=== PATIENT | male | born 1995 | race Caucasian/White ===

== ENCOUNTER 2018-06-29 10:19 | Emergency (ER) | payer OTHER ==
[2018-06-29 10:28] VITALS: RESP 18; TEMP 98
--- NOTE | 2018-06-29 11:48 | CT ---
EXAMINATION TYPE: CT brain wo con DATE OF EXAM: 06/29/2018 COMPARISON: None HISTORY: Migraine Headache, dizziness, and blurred vision. CT DLP: 1108.4 mGycm. Automated Exposure Control for Dose Reduction was Utilized. TECHNIQUE: CT scan of the head is performed without contrast. FINDINGS: There is no acute intracranial hemorrhage, mass effect, or midline shift identified. The ventricles and sulci are within normal limits in size. Ritter-white matter differentiation is maintain ed. The globes are intact and the visualized sinuses are clear. Patchy opacification mastoid air cell s is present bilaterally. IMPRESSION: Possible mastoiditis versus retained secretions, correlate clinically.
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
[2018-06-29 12:31] VITALS: BP 137/74; PULSE 64
== END 2018-06-29 12:28 | disposition home or self-care (01) ==
LOC: EC 10:19
DX: R51 Headache (principal); H70.90 Unspecified mastoiditis, unspecified ear; Z79.1 Long term (current) use of non-steroidal anti-inflammatories (NSAID)
CPT/HCPCS: 70450; 99284

== ENCOUNTER 2018-11-21 11:03 | Emergency (ER) | payer OTHER ==
[2018-11-21 11:09] VITALS: PULSE 87
--- NOTE | 2018-11-21 11:35 | ED ---
Lower Extremity Injury HPI - General Chief Complaint: Extremity Injury, Lower Stated Complaint: rt ankle injury Time Seen by Provider: 11/21/18 11:12 Source: patient, RN notes reviewed, old records reviewed Mode of arrival: wheelchair Limitations: no limitations - History of Present Illness Initial Comments: Patient is a 22-year-old male presents emergency Department with right ankle pain. Patient reports that he twisted his ankle while going down the steps 2 days ago. Since that time he's been a building with crutches. Patient reports the swelling has not gone down for the past few days. Patient states that he's had no other complaints at this time. - Related Data Previous Rx's Medication Instructions Recorded Ibuprofen [Motrin] 600 mg PO Q8HR PRN #30 tab 06/29/18 Ibuprofen 600 mg PO TID #20 tablet 11/21/18 Allergies Allergy/AdvReac Type Severity Reaction Status Date / Time No Known Allergies Allergy Verified 11/21/18 11:27 Review of Systems ROS Statement: Those systems with pertinent positive or pertinent negative responses have been documented in the HPI. ROS Other: All systems not noted in ROS Statement are negative. Past Medical History Past Medical History: No Reported History History of Any Multi-Drug Resistant Organisms: None Reported Past Surgical History: Appendectomy, Tonsillectomy Past Psychological History: No Psychological Hx Reported Smoking Status: Never smoker Past Alcohol Use History: None Reported Past Drug Use History: None Reported General Exam - General Exam Comments Initial Comments: 22-year-old male. Alert and oriented. Patient appears in no distress. Limitations: no limitations General appearance: alert, in no apparent distress Head exam: Present: atraumatic, normocephalic, normal inspection Eye exam: Present: normal appearance, PERRL, EOMI. Absent: scleral icterus, conjunctival injection, periorbital swelling ENT exam: Present: normal exam, mucous membranes moist Neck exam: Present: normal inspection. Absent: tenderness, meningismus, lymphadenopathy Respiratory exam: Present: normal lung sounds bilaterally. Absent: respiratory distress, wheezes, rales, rhonchi, stridor Cardiovascular Exam: Present: regular rate, normal rhythm, normal heart sounds. Absent: systolic murmur, diastolic murmur, rubs, gallop, clicks GI/Abdominal exam: Present: soft, normal bowel sounds. Absent: distended, tenderness, guarding, rebound, rigid Extremities exam: Present: normal inspection, full ROM, normal capillary refill. Absent: tenderness, pedal edema, joint swelling, calf tenderness Right Lower Leg exam: Present: normal inspection, full ROM Ankle exam: Present: full ROM, tenderness, swelling (Just tenderness and swelling over bilateral medial and lateral malleolus.). Absent: normal inspection Foot/Toe exam: Present: normal inspection, full ROM Back exam: Present: normal inspection Neurological exam: Present: alert, oriented X3, CN II-XII intact Psychiatric exam: Present: normal affect, normal mood Skin exam: Present: warm, dry, intact, normal color. Absent: rash Course Vital Signs 11/21/18 11:05 Temperature 98.1 F Pulse Rate 87 Respiratory 18 Rate Blood Pressure 129/81 O2 Sat by Pulse 97 Oximetry Procedures - Orthopedic Splinting/Casting Injury #1 Side: right Lower Extremity Injury Location: ankle Lower Extremity Immobilizer: AirCast, Ben wrap Medical Decision Making - Medical Decision Making 22-year-old male presents emergency department today with complaints of right ankle pain and swelling for 2 days. Patient states he is inhibited his crutches. He twisted his ankle. Neurovascularly intact. There is some swelling noted over the lateral medial malleolus. At this time Patient has normal x-rays. No evidence of fracture. Patient was placed in Ben wrap and ankle stirrup splint. I discussed the Patient can follow-up with orthopedic. Discussed the reports of alternating Motrin and Tylenol. A questions answered. - Radiology Data Radiology results: report reviewed X-ray of the right foot shows no fracture or dislocation. Ankle x-rays negative for any acute fracture dislocation. Soft tissue swelling over the lateral malleolus region noted. Disposition Clinical Impression: Right ankle sprain Disposition: HOME SELF-CARE Condition: Good Instructions (If sedation given, give patient instructions): Ankle Sprain (ED) Additional Instructions: Patient is to follow-up with acute care clinical nurse specialist. Return to the emergency department if any alarming signs or symptoms occur. Patient should wear the Ben wrap and ankle stirrup splint. Prescriptions: Ibuprofen 600 mg PO TID #20 tablet Is patient prescribed a controlled substance at d/c from ED?: No Referrals: None,Stated [Primary Care Provider] - 1-2 days Shahid Shukla MD [STAFF PHYSICIAN] - 1-2 days Time of Disposition: 12:01
--- NOTE | 2018-11-21 11:56 | XR ---
EXAMINATION TYPE: XR ankle complete RT DATE OF EXAM: 11/21/2018 COMPARISON: NONE HISTORY: Pain TECHNIQUE: Frontal, lateral and oblique images of the right ankle are obtained. COMPARISON: None. FINDINGS: There is no acute fracture/dislocation evident. The joint spaces appear within normal jack its. Involuted fibrous cortical defect distal tibia. Soft tissue swelling lateral malleolar region. IMPRESSION: There is no acute fracture or dislocation seen.
--- NOTE | 2018-11-21 11:57 | XR ---
EXAMINATION TYPE: XR foot complete RT DATE OF EXAM: 11/21/2018 CLINICAL HISTORY: pain TECHNIQUE: Frontal, lateral and oblique images of the right foot are obtained. COMPARISON: None. FINDINGS: There is no acute fracture/dislocation evident. The joint spaces appear within normal jack its. The overlying soft tissue appears unremarkable. IMPRESSION: There is no acute fracture or dislocation. ICD 10 NO FRACTURE, INITIAL EVALUATION
[2018-11-21 12:27] VITALS: BP 118/87; RESP 16; TEMP 98
== END 2018-11-21 12:25 | disposition home or self-care (01) ==
LOC: EC 11:03
DX: S93.401A Sprain of unspecified ligament of right ankle, initial encounter (principal); X50.1XXA Overexertion from prolonged static or awkward postures, initial encounter
CPT/HCPCS: 29515; 99284

== ENCOUNTER 2018-12-03 01:40 | Emergency (ER) | payer OTHER ==
[2018-12-03] MEDS ORDERED: HYDROmorphone 0.5 MG/0.5 ML SYRINGE IVP STA (02:21)
[2018-12-03] MEDS ORDERED: KETOROLAC 30 MG/ML 1 ML VIAL IVP STA (02:21)
[2018-12-03] MEDS ORDERED: SODIUM CHLORIDE 0.9% 1,000 ML IV STA (02:21)
[2018-12-03] MEDS ORDERED: ONDANSETRON 4 MG/2 ML VIAL IVP STA (02:21)
[2018-12-03 02:42] LABS: Basophils # (A) 0.1 k/uL (0-0.2); Basophils % (A) 1 %; Eosinophils # (A) 0.2 k/uL (0-0.7); Eosinophils % (A) 2 %; HCT 41.3 % (39.0-53.0); HGB 14.2 gm/dL (13.0-17.5); Lymphocytes # (A) 4.4 k/uL (1.0-4.8); Lymphocytes % (A) 37 %; MCH 29.5 pg (25.0-35.0); MCHC 34.4 g/dL (31.0-37.0); MCV 85.7 fL (80.0-100.0); Mean Platelet Volume 6.2; Monocytes # (A) 0.8 k/uL (0-1.0); Monocytes % (A) 7 %; Neutrophils # (A) 6.1 k/uL (1.3-7.7); Neutrophils % (A) 51 %; Platelet Count 340 k/uL (150-450); RBC 4.81 m/uL (4.30-5.90); RDW 12.7 % (11.5-15.5)
[2018-12-03 02:47] LABS: Amorphous Sediment,Urine Rare /hpf; Appearance,Urine Cloudy (Clear); Bilirubin,Urine Negative (Negative); Blood,Urine Large (Negative); Color,Urine Yellow; Glucose,Urine (UA) Negative (Negative); Ketones,Urine Negative (Negative); Leukocyte Esterase,Urine Negative (Negative); Mucus,Urine Rare /hpf; Nitrite,Urine Negative (Negative); PH, Urine 6.5 (5.0-8.0); Protein,Urine Trace (Negative); RBC,Urine >182 /hpf (0-5); Squamous Epithelial Cell,Urine <1 /hpf (0-4); Urobilinogen,Urine <2.0 mg/dL (<2.0)
--- NOTE | 2018-12-03 02:53 | CT ---
ADDENDUM - Added by Bandar Robb MD on 12/03/2018 2:53 AM (-08:00) ctdi 6 dlp [id number] EXAM: CT Abdomen and Pelvis Without Intravenous Contrast CLINICAL HISTORY: ITS.REASON CT Reason: Pain TECHNIQUE: Axial computed tomography images of the abdomen and pelvis without intravenous contrast. This CT exam was performed using one or more of the following dose reduction techniques: automated exposure control, adjustment of the mA and/or kV according to patient size, and/or use of iterative reconstruction technique. COMPARISON: No relevant prior studies available. FINDINGS: Lung bases: Unremarkable. No mass. No consolidation. ABDOMEN: Liver: No suspicious mass. Gallbladder and bile ducts: No abnormal ductal dilation or stones. Pancreas: Unremarkable. No ductal dilation. Spleen: Unremarkable. No splenomegaly. Adrenals: Unremarkable. No mass. Kidneys and ureters: Bilateral nephrolithiasis. 1 mm stone in the bladder adjacent to the left UVJ with mild hydronephrosis. Stomach and bowel: No obstruction. No mucosal thickening. PELVIS: Appendix: No findings to suggest acute appendicitis. Bladder: Unremarkable. No stones. Reproductive: Unremarkable as visualized. ABDOMEN and PELVIS: Intraperitoneal space: Unremarkable. No free air. No significant fluid collection. Bones/joints: No acute fracture. No dislocation. Soft tissues: Unremarkable. Vasculature: No abdominal aortic aneurysm. Lymph nodes: Unremarkable. No enlarged lymph nodes. IMPRESSION: Bilateral nephrolithiasis. 1 mm stone in the bladder adjacent to the left UVJ with mild hydronephrosis.
[2018-12-03 02:54] LABS: ALT 27 U/L (21-72); AST 27 U/L (17-59); Albumin 4.7 g/dL (3.5-5.0); Alkaline Phosphatase 60 U/L (38-126); Amylase 65 U/L (30-110); Anion Gap 11 mmol/L; Blood Urea Nitrogen 13 mg/dL (9-20); Calcium 9.9 mg/dL (8.4-10.2); Carbon Dioxide 25 mmol/L (22-30); Chloride 104 mmol/L (98-107); Glucose 142 mg/dL (74-99); Lipase 152 U/L (23-300); Potassium 3.5 mmol/L (3.5-5.1); Sodium 140 mmol/L (137-145); Total Bilirubin 0.7 mg/dL (0.2-1.3)
[2018-12-03] MEDS ORDERED: IBUPROFEN 600 MG STARTER PACK 4 TAB BTL PO STA (03:08)
[2018-12-03] MEDS ORDERED: TAMSULOSIN 0.4 MG CAP.ER.24H PO STA (03:08)
[2018-12-03] MEDS ORDERED: ACET/COD 300 MG/30 MG STARTER PACK 6 TAB BTL PO STA (03:08)
--- NOTE | 2018-12-03 03:09 | ED ---
Abdominal Pain HPI - General Source: patient Mode of arrival: ambulatory Limitations: no limitations <Krystal Valencia - Last Filed: 12/03/18 03:25> <Sammie Fischer - Last Filed: 12/03/18 04:45> - General Chief Complaint: Abdominal Pain Stated Complaint: Male Time Seen by Provider: 12/03/18 02:03 - History of Present Illness Initial Comments: 22-year-old male patient presents to the emergency department today for evaluation of left flank pain that radiates and left-sided abdomen. Patient states the pain started 2 hours prior to arrival. Patient states he has been having hematuria with this. States he is nauseated but has not vomited. States he has not had a bowel movement today. States he has had appendectomy in the past but no other abdominal surgeries. Denies history of kidney stone. States he has felt chilled and feverish but has not taken his temperature. Patient denies any recent rash, shortness breath, chest pain, diarrhea, numbness , tingling, dizziness, weakness, dysuria, urinary urgency, urinary frequency, headache, visual changes, or any other complaints. (Krystal Valencia) - Related Data Previous Rx's Medication Instructions Recorded Ibuprofen [Motrin] 600 mg PO Q8HR PRN #30 tab 06/29/18 Ibuprofen 600 mg PO TID #20 tablet 11/21/18 Ibuprofen [Motrin] 600 mg PO Q8HR PRN #30 tab 12/03/18 Tamsulosin HCl [Flomax] 0.4 mg PO DAILY #7 cap 12/03/18 Allergies Allergy/AdvReac Type Severity Reaction Status Date / Time No Known Allergies Allergy Verified 12/03/18 02:00 Review of Systems ROS Other: All systems not noted in ROS Statement are negative. <Krystal Valencia - Last Filed: 12/03/18 03:25> ROS Other: All systems not noted in ROS Statement are negative. <Sammie Fischer - Last Filed: 12/03/18 04:45> ROS Statement: Those systems with pertinent positive or pertinent negative responses have been documented in the HPI. Past Medical History Past Medical History: No Reported History History of Any Multi-Drug Resistant Organisms: None Reported Past Surgical History: Appendectomy, Tonsillectomy Past Psychological History: No Psychological Hx Reported Smoking Status: Never smoker Past Alcohol Use History: None Reported Past Drug Use History: Marijuana <Krystal Valencia M - Last Filed: 12/03/18 03:25> General Exam Limitations: no limitations General appearance: alert, in no apparent distress, other (Physical well- developed, well-nourished adult male patient in no acute distress. Vital signs upon presentation are temperature 98.2F, pulse 94, respirations 18, blood pressure 133/81, pulse ox 100% on room air.) ENT exam: Present: normal exam, normal oropharynx, mucous membranes moist Respiratory exam: Present: normal lung sounds bilaterally. Absent: respiratory distress, wheezes, rales, rhonchi, stridor Cardiovascular Exam: Present: regular rate, normal rhythm, normal heart sounds. Absent: systolic murmur, diastolic murmur, rubs, gallop, clicks GI/Abdominal exam: Present: soft, tenderness (Lower abdominal tenderness), normal bowel sounds. Absent: distended, guarding, rebound, rigid Back exam: Present: normal inspection, CVA tenderness (L). Absent: CVA tenderness (R) Neurological exam: Present: alert, oriented X3, CN II-XII intact Psychiatric exam: Present: normal affect, normal mood Skin exam: Present: warm, dry, intact, normal color. Absent: rash <Krystal Valencia M - Last Filed: 12/03/18 03:25> Vital Signs 12/03/18 12/03/18 01:57 03:15 Temperature 98.2 F 98.7 F Pulse Rate 94 86 Respiratory 18 18 Rate Blood Pressure 133/81 124/86 O2 Sat by Pulse 100 99 Oximetry Medical Decision Making - Lab Data Result diagrams: 12/03/18 02:31 12/03/18 02:31 - Radiology Data Radiology results: report reviewed, image reviewed <Krystal Valencia M - Last Filed: 12/03/18 03:25> - Lab Data Result diagrams: 12/03/18 02:31 12/03/18 02:31 <Sammie Fischer - Last Filed: 12/03/18 04:45> - Medical Decision Making 22-year-old male patient presents to the emergency department today for evaluation of left flank pain and abdominal pain. Physical examination did reveal some left CVA tenderness. Lower abdominal tenderness. Labs reviewed and did reveal large amount of blood with greater than 182 red blood cells in the urine. CT abdomen and pelvis was obtained and did reveal evidence of a 1 mm stone in the bladder at the area of the UVJ. They also showed evidence of left-sided hydronephrosis. This is consistent with recently passed stone. Upon reevaluation patient is much more comfortable. He does feel completely discharged home. Patient be discharged home with anti-inflammatory medication and Flomax. He is instructed to follow-up with his primary care physician for recheck in 1-2 days. He is instructed to follow-up with urology for evaluation as needed. Return parameters discussed in detail. He verbalizes understanding and agrees with this plan. (Krystal Valencia) I was available for consultation in the emergency department. The history and physical exam were done by the midlevel provider. I was consulted for this patient's care. I reviewed the case with the midlevel provider and based on their presentation of the patient, I agree with the assessment, medical decision making and plan of care as documented. (Sammie Fischer) - Lab Data Lab Results 12/03/18 12/03/18 12/03/18 Range/Units 02:31 02:31 02:31 WBC 12.0 H (3.8-10.6) k/uL RBC 4.81 (4.30-5.90) m/uL Hgb 14.2 (13.0-17.5) gm/dL Hct 41.3 (39.0-53.0) % MCV 85.7 (80.0-100.0) fL MCH 29.5 (25.0-35.0) pg MCHC 34.4 (31.0-37.0) g/dL RDW 12.7 (11.5-15.5) % Plt Count 340 (150-450) k/uL Neutrophils % 51 % Lymphocytes % 37 % Monocytes % 7 % Eosinophils % 2 % Basophils % 1 % Neutrophils # 6.1 (1.3-7.7) k/uL Lymphocytes # 4.4 (1.0-4.8) k/uL Monocytes # 0.8 (0-1.0) k/uL Eosinophils # 0.2 (0-0.7) k/uL Basophils # 0.1 (0-0.2) k/uL Sodium 140 (137-145) mmol/L Potassium 3.5 (3.5-5.1) mmol/L Chloride 104 (98-107) mmol/L Carbon Dioxide 25 (22-30) mmol/L Anion Gap 11 mmol/L BUN 13 (9-20) mg/dL Creatinine 0.85 (0.66-1.25) mg/dL Est GFR (CKD-EPI)AfAm >90 (>60 ml/min/1.73 sqM) Est GFR (CKD-EPI)NonAf >90 (>60 ml/min/1.73 sqM) Glucose 142 H (74-99) mg/dL Calcium 9.9 (8.4-10.2) mg/dL Total Bilirubin 0.7 (0.2-1.3) mg/dL AST 27 (17-59) U/L ALT 27 (21-72) U/L Alkaline Phosphatase 60 (38-126) U/L Total Protein 7.0 (6.3-8.2) g/dL Albumin 4.7 (3.5-5.0) g/dL Amylase 65 (30-110) U/L Lipase 152 (23-300) U/L Urine Color Yellow Urine Appearance Cloudy (Clear) Urine pH 6.5 (5.0-8.0) Ur Specific [place] 1.020 (1.001-1.035) Urine Protein Trace H (Negative) Urine Glucose (UA) Negative (Negative) Urine Ketones Negative (Negative) Urine Blood Large H (Negative) Urine Nitrite Negative (Negative) Urine Bilirubin Negative (Negative) Urine Urobilinogen <2.0 (<2.0) mg/dL Ur Leukocyte Esterase Negative (Negative) Urine RBC >182 H (0-5) /hpf Ur Squamous Epith Cells <1 (0-4) /hpf Amorphous Sediment Rare H (None) /hpf Urine Mucus Rare H (None) /hpf - Radiology Data CT abdomen and pelvis without contrast was obtained. Report was reviewed in its entirety. Impression by Dr. Robb shows bilateral nephrolithiasis. 1 mm stone in the bladder adjacent to the left UVJ with mild hydronephrosis. (Krystal Valencia) Disposition Is patient prescribed a controlled substance at d/c from ED?: No Time of Disposition: 03:09 <Krystal Valencia - Last Filed: 12/03/18 03:25> <Sammie Fischer P - Last Filed: 12/03/18 04:45> Clinical Impression: Kidney stone on left side Disposition: HOME SELF-CARE Condition: Good Instructions (If sedation given, give patient instructions): Kidney Stones (ED) Additional Instructions: Increase fluids. Take medications as directed. Follow-up through primary care physician for recheck in 1-2 days. Follow-up with urologist as needed. Return to the emergency department immediately for any new, worsening, or concerning symptoms. Prescriptions: Ibuprofen [Motrin] 600 mg PO Q8HR PRN #30 tab PRN Reason: Pain Tamsulosin HCl [Flomax] 0.4 mg PO DAILY #7 cap Referrals: Canelo West MD [STAFF PHYSICIAN] - 1-2 days
[2018-12-03 03:18] VITALS: BP 124/86; PULSE 86; TEMP 98.7
[2018-12-03 05:08] VITALS: RESP 17
== END 2018-12-03 03:17 | disposition home or self-care (01) ==
LOC: EC 01:40
DX: N13.2 Hydronephrosis with renal and ureteral calculous obstruction (principal); Z90.49 Acquired absence of other specified parts of digestive tract
CPT/HCPCS: 36415; 80053; 82150; 83690; 85025; 81001; 74176; 99284; 96374; 96375 ×2; 96361; J2405; J1885; J1170

== ENCOUNTER 2019-05-16 14:59 | Emergency (ER) | payer BC, OTHER ==
[2019-05-16 15:05] VITALS: BP 117/81; PULSE 105; RESP 16; TEMP 97.7
[2019-05-16 16:20] LABS: ALT 16 U/L (21-72); AST 22 U/L (17-59); African American GFR (CKD) >90 (>60 ml/min/1.73 sqM); Alkaline Phosphatase 66 U/L (38-126); Amylase 79 U/L (30-110); Anion Gap 11 mmol/L; Blood Urea Nitrogen 11 mg/dL (9-20); Calcium 10.4 mg/dL (8.4-10.2); Carbon Dioxide 23 mmol/L (22-30); Chloride 108 mmol/L (98-107); Glucose 89 mg/dL (74-99); Non-African American GFR(CKD) >90 (>60 ml/min/1.73 sqM); Sodium 142 mmol/L (137-145); Total Bilirubin 0.9 mg/dL (0.2-1.3)
[2019-05-16 16:21] LABS: Potassium 4.3 mmol/L (3.5-5.1)
[2019-05-16 16:29] LABS: Basophils % (A) 1 %; Eosinophils # (A) 0.1 k/uL (0-0.7); Eosinophils % (A) 1 %; HCT 44.7 % (39.0-53.0); HGB 14.9 gm/dL (13.0-17.5); Lymphocytes # (A) 1.7 k/uL (1.0-4.8); Lymphocytes % (A) 28 %; MCH 28.3 pg (25.0-35.0); MCHC 33.4 g/dL (31.0-37.0); MCV 84.6 fL (80.0-100.0); Monocytes # (A) 0.4 k/uL (0-1.0); Monocytes % (A) 6 %; Neutrophils # (A) 3.9 k/uL (1.3-7.7); Neutrophils % (A) 62 %; Platelet Count 248 k/uL (150-450); RBC 5.28 m/uL (4.30-5.90); RDW 12.5 % (11.5-15.5); WBC 6.2 k/uL (3.8-10.6)
[2019-05-16 16:30] LABS: Appearance,Urine Clear (Clear); Bilirubin,Urine Negative (Negative); Blood,Urine Negative (Negative); Color,Urine Yellow; Glucose,Urine (UA) Negative (Negative); Ketones,Urine Trace (Negative); Leukocyte Esterase,Urine Trace (Negative); Mucus,Urine Few /hpf; Nitrite,Urine Negative (Negative); PH, Urine 8.5 (5.0-8.0); Protein,Urine 1+ (Negative); RBC,Urine <1 /hpf (0-5); Specific Gravity,Urine 1.017 (1.001-1.035); Squamous Epithelial Cell,Urine <1 /hpf (0-4); Urobilinogen,Urine <2.0 mg/dL (<2.0); WBC,Urine 2 /hpf (0-5)
--- NOTE | 2019-05-16 17:06 | XR ---
EXAMINATION: XR chest 2V DATE AND TIME: 05/16/2019 4:43 PM CLINICAL INDICATION: PHH; Pain TECHNIQUE: Departmental protocol COMPARISON: None FINDINGS: The lungs are clear. The pleural spaces are negative. The cardiac silhouette is not enlarged. The remainder of the mediastinal silhouette is unremarkable. The skeletal structures and soft tissues are negative for acute findings. IMPRESSION: NO ACUTE PROCESS.
--- NOTE | 2019-05-16 17:21 | ED ---
Abdominal Pain HPI - General Chief Complaint: Abdominal Pain Stated Complaint: Chest pain, abd pain Time Seen by Provider: 05/16/19 15:56 Source: patient Mode of arrival: ambulatory Limitations: no limitations - History of Present Illness Initial Comments: 23-year-old male presenting today for chief complaint of pain in the chest for one month. Patient states she has had pain in his chest in the morning for the past one month he states it does occur throughout the day denies any specific pattern he states he does notice that the pain occurs at him cracking his sternum in the morning. Patient states it is sharp, he states it does increase at times with deep inspiration however this is not consistent. Patient denies any shortness of breath or leg swelling. Denies any diabetes high blood pressure or connective tissues disorders. Denies fevers. Denies congenital heart disorders. Remaining ROS (-). Upon arrival patient appears well there is n o signs of acute distress. - Related Data Home Medications Medication Instructions Recorded Confirmed Acetaminophen Tab [Tylenol Tab] 650 mg PO Q6H PRN 05/16/19 05/16/19 Allergies Allergy/AdvReac Type Severity Reaction Status Date / Time No Known Allergies Allergy Verified 05/16/19 15:41 Review of Systems ROS Statement: Those systems with pertinent positive or pertinent negative responses have been documented in the HPI. ROS Other: All systems not noted in ROS Statement are negative. Past Medical History Past Medical History: No Reported History History of Any Multi-Drug Resistant Organisms: None Reported Past Surgical History: Appendectomy, Tonsillectomy Past Psychological History: No Psychological Hx Reported Smoking Status: Never smoker Past Alcohol Use History: None Reported Past Drug Use History: Marijuana General Exam - General Exam Comments Initial Comments: General: The patient is awake and alert, in no distress, and does not appear acutely ill. Eye: +3 mm pupils are equal, round and reactive to light, extra-ocular movements are intact. No nystagmus. There is normal conjunctiva bilaterally. No signs of icterus. Ears, nose, mouth and throat: There are moist mucous membranes and no oral lesions. Neck: The neck is supple, there is no tenderness or JVD. Cardiovascular: There is a regular rate and rhythm. No murmur, rub or gallop is appreciated. Respiratory: Lungs are clear to auscultation, respirations are non-labored, breath sounds are equal. No wheezes, stridor, rales, or rhonchi. Gastrointestinal: Soft, non-distended, non-tender abdomen without masses or organomegaly noted. There is no rebound or guarding present. No CVA tenderness. Bowel sounds are unremarkable. Musculoskeletal: tender to palption of the anterior chest wall/sternum. Normal ROM, no tenderness. Strength 5/5. Sensation intact. Pulses equal bilaterally 2+. Neurological: A&O x 3. CN II-XII intact, There are no obvious motor or sensory deficits. Coordination appears grossly intact. Speech is normal. Skin: Skin is warm and dry and no rashes or lesions are noted. No LE edema. Psychiatric: Cooperative, appropriate mood & affect, normal judgment. Limitations: no limitations Course Vital Signs 05/16/19 15:01 Temperature 97.7 F Pulse Rate 105 H Respiratory 16 Rate Blood Pressure 117/81 O2 Sat by Pulse 100 Oximetry Medical Decision Making - Medical Decision Making Well-appearing 23-year-old male presenting for chest pain x 1 month described as sharp, cracking of sternum in morning. Patient has reproducible chest pain on exam. Lung clear, denies abdominal pain. Abdomen soft no epigastric tenderness. Trop (-) Dimer negligible. Patient BP 124/78 in the left arm, patient BP is 130/88 in the right arm. Patient appears well. EKG no findings consistent with ACS. CXR WNL. No personal RF. Given patient history pain appears atypical, skeletal. Discussed case with Dr. Zeenat aldana discharged appearing well. Return parameters as well as importance of outpatient follow-up are discussed. - Lab Data Result diagrams: 05/16/19 15:38 05/16/19 15:38 Lab Results 05/16/19 05/16/19 05/16/19 Range/Units 15:38 15:38 15:38 WBC 6.2 (3.8-10.6) k/uL RBC 5.28 (4.30-5.90) m/uL Hgb 14.9 (13.0-17.5) gm/dL Hct 44.7 (39.0-53.0) % MCV 84.6 (80.0-100.0) fL MCH 28.3 (25.0-35.0) pg MCHC 33.4 (31.0-37.0) g/dL RDW 12.5 (11.5-15.5) % Plt Count 248 (150-450) k/uL Neutrophils % 62 % Lymphocytes % 28 % Monocytes % 6 % Eosinophils % 1 % Basophils % 1 % Neutrophils # 3.9 (1.3-7.7) k/uL Lymphocytes # 1.7 (1.0-4.8) k/uL Monocytes # 0.4 (0-1.0) k/uL Eosinophils # 0.1 (0-0.7) k/uL Basophils # 0.0 (0-0.2) k/uL D-Dimer (<0.60) mg/L FEU Sodium 142 (137-145) mmol/L Potassium 4.3 (3.5-5.1) mmol/L Chloride 108 H (98-107) mmol/L Carbon Dioxide 23 (22-30) mmol/L Anion Gap 11 mmol/L BUN 11 (9-20) mg/dL Creatinine 0.72 (0.66-1.25) mg/dL Est GFR (CKD-EPI)AfAm >90 (>60 ml/min/1.73 sqM) Est GFR (CKD-EPI)NonAf >90 (>60 ml/min/1.73 sqM) Glucose 89 (74-99) mg/dL Calcium 10.4 H (8.4-10.2) mg/dL Total Bilirubin 0.9 (0.2-1.3) mg/dL AST 22 (17-59) U/L ALT 16 L (21-72) U/L Alkaline Phosphatase 66 (38-126) U/L Troponin I <0.012 (0.000-0.034) ng/mL Total Protein 8.0 (6.3-8.2) g/dL Albumin 5.0 (3.5-5.0) g/dL Amylase 79 (30-110) U/L Lipase 162 (23-300) U/L Urine Color Urine Appearance (Clear) Urine pH (5.0-8.0) Ur Specific [place] (1.001-1.035) Urine Protein (Negative) Urine Glucose (UA) (Negative) Urine Ketones (Negative) Urine Blood (Negative) Urine Nitrite (Negative) Urine Bilirubin (Negative) Urine Urobilinogen (<2.0) mg/dL Ur Leukocyte Esterase (Negative) Urine RBC (0-5) /hpf Urine WBC (0-5) /hpf Ur Squamous Epith Cells (0-4) /hpf Urine Mucus (None) /hpf 05/16/19 05/16/19 Range/Units 15:38 16:20 WBC (3.8-10.6) k/uL RBC (4.30-5.90) m/uL Hgb (13.0-17.5) gm/dL Hct (39.0-53.0) % MCV (80.0-100.0) fL MCH (25.0-35.0) pg MCHC (31.0-37.0) g/dL RDW (11.5-15.5) % Plt Count (150-450) k/uL Neutrophils % % Lymphocytes % % Monocytes % % Eosinophils % % Basophils % % Neutrophils # (1.3-7.7) k/uL Lymphocytes # (1.0-4.8) k/uL Monocytes # (0-1.0) k/uL Eosinophils # (0-0.7) k/uL Basophils # (0-0.2) k/uL D-Dimer <0.17 (<0.60) mg/L FEU Sodium (137-145) mmol/L Potassium (3.5-5.1) mmol/L Chloride (98-107) mmol/L Carbon Dioxide (22-30) mmol/L Anion Gap mmol/L BUN (9-20) mg/dL Creatinine (0.66-1.25) mg/dL Est GFR (CKD-EPI)AfAm (>60 ml/min/1.73 sqM) Est GFR (CKD-EPI)NonAf (>60 ml/min/1.73 sqM) Glucose (74-99) mg/dL Calcium (8.4-10.2) mg/dL Total Bilirubin (0.2-1.3) mg/dL AST (17-59) U/L ALT (21-72) U/L Alkaline Phosphatase (38-126) U/L Troponin I (0.000-0.034) ng/mL Total Protein (6.3-8.2) g/dL Albumin (3.5-5.0) g/dL Amylase (30-110) U/L Lipase (23-300) U/L Urine Color Yellow Urine Appearance Clear (Clear) Urine pH 8.5 H (5.0-8.0) Ur Specific [place] 1.017 (1.001-1.035) Urine Protein 1+ H (Negative) Urine Glucose (UA) Negative (Negative) Urine Ketones Trace H (Negative) Urine Blood Negative (Negative) Urine Nitrite Negative (Negative) Urine Bilirubin Negative (Negative) Urine Urobilinogen <2.0 (<2.0) mg/dL Ur Leukocyte Esterase Trace H (Negative) Urine RBC <1 (0-5) /hpf Urine WBC 2 (0-5) /hpf Ur Squamous Epith Cells <1 (0-4) /hpf Urine Mucus Few H (None) /hpf - EKG Data EKG Comments: A 12-lead EKG was performed and shows the following: Rate is 77bpm, and rhythm is normal sinus with sinus arrhythmia. There are normal QRS complexes and normal R-wave progression. ST segments have no elevation or depression, and CA segments appear normal. CA interval 118 ms, short duration 86 ms, Q she says QTC 344/389 ms. Disposition Clinical Impression: Atypical chest pain Disposition: HOME SELF-CARE Condition: Good Instructions (If sedation given, give patient instructions): Chest Pain (ED), Musculoskeletal Pain (ED) Additional Instructions: Please use medication as discussed. Please follow-up with family doctor in the next 2 days Please return to emergency room if the symptoms increase or worsen or for any other concerns. Is patient prescribed a controlled substance at d/c from ED?: No Referrals: None,Stated [Primary Care Provider] - 1-2 days [facility]2 [facility] Time of Disposition: 17:21
== END 2019-05-16 17:45 | disposition home or self-care (01) ==
LOC: EC 14:59
DX: R07.89 Other chest pain (principal); R10.10 Upper abdominal pain, unspecified
CPT/HCPCS: 36415; 71046; 80053; 81001; 82150; 83690; 84484; 85025; 85379; 93005; 99284

== ENCOUNTER 2020-07-15 16:15 | Emergency (ER) | payer BC, OTHER ==
[2020-07-15 16:30] VITALS: TEMP 98.1
[2020-07-15] MEDS ORDERED: SODIUM CHLORIDE 0.9% 500 ML 500 ML IV STA (17:03)
[2020-07-15] MEDS ORDERED: PANTOPRAZOLE 40 MG/10 ML VIAL IVP STA (17:03)
--- NOTE | 2020-07-15 17:32 | ED ---
Abdominal Pain HPI - General Chief Complaint: Abdominal Pain Stated Complaint: COUGHING UP BLOOD X2DAYS Time Seen by Provider: 07/15/20 17:03 Source: patient Mode of arrival: ambulatory Limitations: no limitations - History of Present Illness Initial Comments: Patient is 24-year-old male presenting to the emergency department with coughing up blood and blood in the stool. Patient states over this last week he has developed 2 episodes of spitting up blood especially only when he wakes up in the morning. Patient states he does not have any nausea but wakes up with some blood in his throat. He doesn't history of acid reflux and has been binge drin leah more liquored in usual over this last 2 weeks. He does report occasional cough but states that his secondary to is vaping and smoking marijuana daily. He also reports noticing some darker stools and one episode of dark red bleeding after having a bowel movement. He denies any history of hemorrhoids or fissures. He denies any abdominal pain, chest pain or shortness of breath. - Related Data Home Medications Medication Instructions Recorded Confirmed Acetaminophen Tab [Tylenol Tab] 650 mg PO Q6H PRN 05/16/19 05/16/19 Previous Rx's Medication Instructions Recorded Omeprazole [PriLOSEC] 20 mg PO AC-BRKFST #14 cap 07/15/20 Allergies Allergy/AdvReac Type Severity Reaction Status Date / Time No Known Allergies Allergy Verified 07/15/20 16:26 Review of Systems ROS Statement: Those systems with pertinent positive or pertinent negative responses have been documented in the HPI. ROS Other: All systems not noted in ROS Statement are negative. Past Medical History Past Medical History: No Reported History History of Any Multi-Drug Resistant Organisms: None Reported Past Surgical History: Appendectomy, Tonsillectomy Past Psychological History: No Psychological Hx Reported Smoking Status: Current every day smoker Past Alcohol Use History: Occasional Past Drug Use History: Marijuana, Prescription Drug Abuse General Exam Limitations: no limitations General appearance: alert, in no apparent distress Head exam: Present: atraumatic, normocephalic, normal inspection Eye exam: Present: normal appearance, PERRL, EOMI Pupils: Present: normal accommodation ENT exam: Present: normal exam, normal oropharynx, mucous membranes moist, TM's normal bilaterally, normal external ear exam Neck exam: Present: normal inspection, full ROM. Absent: tenderness Respiratory exam: Present: normal lung sounds bilaterally. Absent: respiratory distress, wheezes, rales Cardiovascular Exam: Present: regular rate, normal rhythm, normal heart sounds GI/Abdominal exam: Present: soft. Absent: distended, tenderness, guarding, rebound, rigid Rectal exam: Present: normal inspection, normal rectal tone. Absent: black stool, bloody stool, hemorrhoids, tenderness Extremities exam: Present: normal inspection, full ROM, normal capillary refill, other (+2 ulnar and radial pulses bilaterally. +2 dorsalis pedis and posterior tibials bilateral.) Back exam: Present: normal inspection, full ROM. Absent: tenderness, CVA tenderness (R), CVA tenderness (L) Neurological exam: Present: alert, oriented X3, CN II-XII intact, normal gait Psychiatric exam: Present: normal affect, normal mood Skin exam: Present: warm, dry, intact, normal color. Absent: rash Course Vital Signs 07/15/20 16:26 Temperature 98.1 F Pulse Rate 114 H Respiratory 16 Rate Blood Pressure 115/77 O2 Sat by Pulse 98 Oximetry Medical Decision Making - Medical Decision Making Patient is a 24-year-old male with history of GERD presenting to the emergency department a chief complaint of bloody stool and coughing up blood. Physical examination is unremarkable. Patient does not have pale conjunctiva. CBC CMP and UA is unremarkable. Stool occult is negative. I suspect the patient has hematemesis rather than hemoptysis. He only spit up blood twice and only in the morning without any nausea. I think this is secondary to his increased binge drinking pattern over the last 2 weeks in conjunction with his GERD. No signs of anemia. Patient will be discharged with omeprazole and advised to avoid any acidic foods. He was also advised to stop drinking alcohol. I counseled the patient for smoking cessation for greater than 3 minutes. He was advised to follow-up with a GI specialist. Strict return parameters were thoroughly discussed with patient was understanding and agreeable. Case discussed with physician. - Lab Data Result diagrams: 07/15/20 17:30 07/15/20 17:30 Lab Results 07/15/20 07/15/20 07/15/20 Range/Units 17:30 17:30 17:30 WBC 10.1 (3.8-10.6) k/uL RBC 5.02 (4.30-5.90) m/uL Hgb 14.1 (13.0-17.5) gm/dL Hct 43.0 (39.0-53.0) % MCV 85.7 (80.0-100.0) fL MCH 28.1 (25.0-35.0) pg MCHC 32.8 (31.0-37.0) g/dL RDW 12.2 (11.5-15.5) % Plt Count 267 (150-450) k/uL Neutrophils % 71 % Lymphocytes % 20 % Monocytes % 5 % Eosinophils % 2 % Basophils % 1 % Neutrophils # 7.2 (1.3-7.7) k/uL Lymphocytes # 2.0 (1.0-4.8) k/uL Monocytes # 0.5 (0-1.0) k/uL Eosinophils # 0.2 (0-0.7) k/uL Basophils # 0.1 (0-0.2) k/uL APTT 29.0 (22.0-30.0) sec D-Dimer <0.17 (<0.60) mg/L FEU Sodium 137 (137-145) mmol/L Potassium 4.3 (3.5-5.1) mmol/L Chloride 104 (98-107) mmol/L Carbon Dioxide 26 (22-30) mmol/L Anion Gap 7 mmol/L BUN 9 (9-20) mg/dL Creatinine 0.62 L (0.66-1.25) mg/dL Est GFR (CKD-EPI)AfAm >90 (>60 ml/min/1.73 sqM) Est GFR (CKD-EPI)NonAf >90 (>60 ml/min/1.73 sqM) Glucose 98 (74-99) mg/dL Plasma Lactic Acid [place] (0.7-2.0) mmol/L Calcium 9.5 (8.4-10.2) mg/dL Total Bilirubin 0.8 (0.2-1.3) mg/dL AST 24 (17-59) U/L ALT 10 (4-49) U/L Alkaline Phosphatase 62 (38-126) U/L Troponin I (0.000-0.034) ng/mL Total Protein 7.0 (6.3-8.2) g/dL Albumin 4.4 (3.5-5.0) g/dL Stool Occult Blood (Negative) Blood Type Blood Type Recheck Bld Type Recheck Status Antibody Screen Spec Expiration Date 07/15/20 07/15/20 07/15/20 Range/Units 17:30 17:30 17:30 WBC (3.8-10.6) k/uL RBC (4.30-5.90) m/uL Hgb (13.0-17.5) gm/dL Hct (39.0-53.0) % MCV (80.0-100.0) fL MCH (25.0-35.0) pg MCHC (31.0-37.0) g/dL RDW (11.5-15.5) % Plt Count (150-450) k/uL Neutrophils % % Lymphocytes % % Monocytes % % Eosinophils % % Basophils % % Neutrophils # (1.3-7.7) k/uL Lymphocytes # (1.0-4.8) k/uL Monocytes # (0-1.0) k/uL Eosinophils # (0-0.7) k/uL Basophils # (0-0.2) k/uL APTT (22.0-30.0) sec D-Dimer (<0.60) mg/L FEU Sodium (137-145) mmol/L Potassium (3.5-5.1) mmol/L Chloride (98-107) mmol/L Carbon Dioxide (22-30) mmol/L Anion Gap mmol/L BUN (9-20) mg/dL Creatinine (0.66-1.25) mg/dL Est GFR (CKD-EPI)AfAm (>60 ml/min/1.73 sqM) Est GFR (CKD-EPI)NonAf (>60 ml/min/1.73 sqM) Glucose (74-99) mg/dL Plasma Lactic Acid Spencer 0.8 (0.7-2.0) mmol/L Calcium (8.4-10.2) mg/dL Total Bilirubin (0.2-1.3) mg/dL AST (17-59) U/L ALT (4-49) U/L Alkaline Phosphatase (38-126) U/L Troponin I <0.012 (0.000-0.034) ng/mL Total Protein (6.3-8.2) g/dL Albumin (3.5-5.0) g/dL Stool Occult Blood (Negative) Blood Type O Positive Blood Type Recheck No Previous Record Bld Type Recheck Status CABO Indicated Antibody Screen NEGATIVE Spec Expiration Date 07/18/2020 - 232907/15/20 Range/Units Unknown WBC (3.8-10.6) k/uL RBC (4.30-5.90) m/uL Hgb (13.0-17.5) gm/dL Hct (39.0-53.0) % MCV (80.0-100.0) fL MCH (25.0-35.0) pg MCHC (31.0-37.0) g/dL RDW (11.5-15.5) % Plt Count (150-450) k/uL Neutrophils % % Lymphocytes % % Monocytes % % Eosinophils % % Basophils % % Neutrophils # (1.3-7.7) k/uL Lymphocytes # (1.0-4.8) k/uL Monocytes # (0-1.0) k/uL Eosinophils # (0-0.7) k/uL Basophils # (0-0.2) k/uL APTT (22.0-30.0) sec D-Dimer (<0.60) mg/L FEU Sodium (137-145) mmol/L Potassium (3.5-5.1) mmol/L Chloride (98-107) mmol/L Carbon Dioxide (22-30) mmol/L Anion Gap mmol/L BUN (9-20) mg/dL Creatinine (0.66-1.25) mg/dL Est GFR (CKD-EPI)AfAm (>60 ml/min/1.73 sqM) Est GFR (CKD-EPI)NonAf (>60 ml/min/1.73 sqM) Glucose (74-99) mg/dL Plasma Lactic Acid [place] (0.7-2.0) mmol/L Calcium (8.4-10.2) mg/dL Total Bilirubin (0.2-1.3) mg/dL AST (17-59) U/L ALT (4-49) U/L Alkaline Phosphatase (38-126) U/L Troponin I (0.000-0.034) ng/mL Total Protein (6.3-8.2) g/dL Albumin (3.5-5.0) g/dL Stool Occult Blood Negative (Negative) Blood Type Blood Type Recheck Bld Type Recheck Status Antibody Screen Spec Expiration Date Disposition Clinical Impression: Hematemesis without nausea Disposition: HOME SELF-CARE Condition: Stable Instructions (If sedation given, give patient instructions): Hematemesis (ED) Additional Instructions: Follow with the primary care physician. Follow-up with a GI specialist. Return to emergency department if symptoms worsen. Stop drinking alcohol Prescriptions: Omeprazole [PriLOSEC] 20 mg PO AC-BRKFST #14 cap Is patient prescribed a controlled substance at d/c from ED?: No Referrals: None,Stated [Primary Care Provider] - 1-2 days Vanita Ramirez MD [STAFF PHYSICIAN] - 1-2 days Time of Disposition: 18:34
[2020-07-15 17:41] LABS: Basophils # (A) 0.1 k/uL (0-0.2); Basophils % (A) 1 %; Eosinophils # (A) 0.2 k/uL (0-0.7); Eosinophils % (A) 2 %; HGB 14.1 gm/dL (13.0-17.5); Lymphocytes % (A) 20 %; MCH 28.1 pg (25.0-35.0); MCHC 32.8 g/dL (31.0-37.0); MCV 85.7 fL (80.0-100.0); Mean Platelet Volume 6.7; Monocytes # (A) 0.5 k/uL (0-1.0); Monocytes % (A) 5 %; Neutrophils # (A) 7.2 k/uL (1.3-7.7); Neutrophils % (A) 71 %; Platelet Count 267 k/uL (150-450); RBC 5.02 m/uL (4.30-5.90); RDW 12.2 % (11.5-15.5); WBC 10.1 k/uL (3.8-10.6)
[2020-07-15 17:51] LABS: ALT 10 U/L (4-49); AST 24 U/L (17-59); African American GFR (CKD) >90 (>60 ml/min/1.73 sqM); Albumin 4.4 g/dL (3.5-5.0); Alkaline Phosphatase 62 U/L (38-126); Anion Gap 7 mmol/L; Blood Urea Nitrogen 9 mg/dL (9-20); Calcium 9.5 mg/dL (8.4-10.2); Carbon Dioxide 26 mmol/L (22-30); Chloride 104 mmol/L (98-107); Glucose 98 mg/dL (74-99); Non-African American GFR(CKD) >90 (>60 ml/min/1.73 sqM); Potassium 4.3 mmol/L (3.5-5.1); Sodium 137 mmol/L (137-145); Total Bilirubin 0.8 mg/dL (0.2-1.3)
[2020-07-15 17:56] LABS: D-Dimer <0.17 mg/L FEU (<0.60)
[2020-07-15 19:26] VITALS: BP 117/78; PULSE 84; RESP 19
== END 2020-07-15 19:22 | disposition home or self-care (01) ==
LOC: EC 16:15
DX: K92.0 Hematemesis (principal); K92.1 Melena; F17.290 Nicotine dependence, other tobacco product, uncomplicated; Z90.89 Acquired absence of other organs
CPT/HCPCS: 36415; 93005; 86900; 86901; 85379; 80053; 83605; 84484; 85025; 85730; 86850; 82272; 99284; 96374; 96361; C9113

== ENCOUNTER 2020-08-06 11:31 | Day surgery (SDC) | payer BC ==
[~2020-08-06 11:31] MED LIST: LACTATED RINGERS 1,000 ML IV SCH
[2020-08-06 12:03] VITALS: RESP 16; TEMP 98
[2020-08-06] MEDS ORDERED: MIDAZOLAM 2 MG/2 ML VIAL ONE (12:57)
[2020-08-06] MEDS ORDERED: PROPOFOL 10 MG/ML 20 ML VIAL IV ONE (12:57)
[2020-08-06] MEDS ORDERED: LIDOCAINE 1% INJ 10MG/ML (20 ML MDV) ONE (12:57)
[2020-08-06] MEDS ORDERED: fentaNYL (PF) 50 MCG/ML 2 ML AMP ONE (12:57)
--- NOTE | 2020-08-06 13:16 | P.PCN ---
Date of Procedure: 08/06/20 Description of Procedure: BRIEF HISTORY: Patient is a 24-year-old male presenting for outpatient EGD for evaluation of left upper quadrant pain. Patient reports intermittent stabbing left upper quadrant pain. Reports a feeling of tightness. Reports rare heartburn. He also reports coughing up blood. He notes dark-colored stool.. PROCEDURE PERFORMED: Esophagogastroduodenoscopy with biopsy. PREOPERATIVE DIAGNOSIS: Left upper quadrant pain. ESTIMATED BLOOD LOSS: Minimal. IV sedation per anesthesia. PROCEDURE: After informed consent was obtained, the patient was brought into the endoscopy unit. IV sedation was administered by Anesthesia under continuous monitoring. Initially the Olympus GIF-190 video endoscope was inserted into the mouth. Esophagus intubated without any difficulty. It was gradually advanced into the stomach and duodenum and carefully examined. The bulb and the second part of the duodenum appeared normal, with biopsies taken, except for some mild scattered erythema in the antrum and body suggestive of mild gastritis biopsies taken. The scope at this time was withdrawn to the stomach, adequately insufflated with air, and upon careful examination, mucosa of the antrum, body, cardia and the fundus appeared normal. The scope was then withdrawn into the esophagus. The GE junction was located at 44 cm from the incisors and biopsied. The esophagus appeared normal. There were no erosions or ulcerations seen and the patient tolerated the procedure well. IMPRESSION: 1. Mild gastritis. 2. Disease of the duodenum, antrum body and GE junction. RECOMMENDATIONS: The findings of this examination were discussed with the patient are friend. Okay to resume diet. Okay to resume medications. Continue trial of omeprazole therapy. Follow-up in GI clinic as scheduled.
[2020-08-06 13:48] VITALS: BP 111/73; PULSE 72
== END 2020-08-06 14:00 | disposition home or self-care (01) ==
LOC: ORWHC2ENDO 11:31
PROVIDERS: ATTEND Internal Medicine
DX: K29.51 Unspecified chronic gastritis with bleeding (principal); K20.91 Esophagitis, unspecified with bleeding; K31.9 Disease of stomach and duodenum, unspecified; R19.5 Other fecal abnormalities; Z79.899 Other long term (current) drug therapy; Z90.49 Acquired absence of other specified parts of digestive tract; Z90.89 Acquired absence of other organs; Z98.890 Other specified postprocedural states
CPT/HCPCS: 88305; 43239; J2250; J2001; J3010; J2704

== ENCOUNTER 2022-01-05 19:38 | Emergency (ER) | payer BC ==
[2022-01-05 20:06] VITALS: BP 122/85; PULSE 117; RESP 14; TEMP 98.4
[2022-01-05 20:31] LABS: Appearance,Urine Turbid (Clear); Bacteria,Urine Occasional /hpf; Bilirubin,Urine Negative (Negative); Blood,Urine Moderate (Negative); Budding Yeast,Urine Many /hpf; Color,Urine Yellow; Glucose,Urine (UA) Negative (Negative); Ketones,Urine Negative (Negative); Leukocyte Esterase,Urine Negative (Negative); Mucus,Urine Few /hpf; Nitrite,Urine Negative (Negative); Protein,Urine Trace (Negative); RBC,Urine 10 /hpf (0-5); Specific Gravity,Urine 1.024 (1.001-1.035); Squamous Epithelial Cell,Urine <1 /hpf (0-4); WBC,Urine 9 /hpf (0-5)
[2022-01-05 20:39] LABS: Basophils # (A) 0.1 k/uL (0-0.2); Basophils % (A) 1 %; Eosinophils # (A) 0.3 k/uL (0-0.7); Eosinophils % (A) 4 %; HCT 42.9 % (39.0-53.0); HGB 14.1 gm/dL (13.0-17.5); Lymphocytes # (A) 2.5 k/uL (1.0-4.8); Lymphocytes % (A) 28 %; Mean Platelet Volume 7.1; Monocytes # (A) 0.6 k/uL (0-1.0); Monocytes % (A) 7 %; Neutrophils # (A) 5.2 k/uL (1.3-7.7); Neutrophils % (A) 59 %; Platelet Count 279 k/uL (150-450); RBC 4.87 m/uL (4.30-5.90); RDW 12.2 % (11.5-15.5); WBC 8.8 k/uL (3.8-10.6)
[2022-01-05 20:47] LABS: ALT 12 U/L (4-49); AST 23 U/L (17-59); African American GFR (CKD) >90 (>60 ml/min/1.73 sqM); Albumin 4.7 g/dL (3.5-5.0); Alkaline Phosphatase 57 U/L (38-126); Anion Gap 10 mmol/L; Blood Urea Nitrogen 13 mg/dL (9-20); Calcium 9.2 mg/dL (8.4-10.2); Carbon Dioxide 24 mmol/L (22-30); Chloride 107 mmol/L (98-107); Glucose 88 mg/dL (74-99); Non-African American GFR(CKD) >90 (>60 ml/min/1.73 sqM); Sodium 141 mmol/L (137-145); Total Bilirubin 0.5 mg/dL (0.2-1.3); Total Protein 7.4 g/dL (6.3-8.2)
== END 2022-01-05 22:55 | disposition left against medical advice (07) ==
LOC: EC 19:38
DX: Z53.21 Procedure and treatment not carried out due to patient leaving prior to being seen by health care provider (principal)
CPT/HCPCS: 36415; 80053; 81001; 85025; 99499

== ENCOUNTER 2023-07-25 20:49 | Emergency (ER) | payer OTHER ==
--- NOTE | 2023-07-25 21:09 | ED ---
Abdominal Pain HPI - General Source: patient, RN notes reviewed Mode of arrival: ambulatory Limitations: no limitations <Huang Bennett - Last Filed: 07/25/23 21:08> <Valeria Licea - Last Filed: 07/25/23 23:42> - History of Present Illness MD Complaint: abdominal pain -: week(s), month(s) Location: diffuse Radiation: none Migration to: no migration Severity: severe Severity scale (1-10): 8 Quality: stabbing, aching Consistency: constant Improves With: nothing Worsens With: nothing <Dio Epperson - Last Filed: 07/31/23 13:12> - General Chief Complaint: Abdominal Pain Stated Complaint: Abd pain Time Seen by Provider: 07/25/23 21:08 - History of Present Illness Initial Comments: 27-year-old male presents emergency Department with chief complaint abdominal pain, nausea vomiting diarrhea. Patient recent diagnosis of Crohn's disease at [facility]. Patient states he missed his dose medication for one day and states that symptoms worsen he states he cannot keep anything down he just concerned she hydrated. Patient states he has not been able follow-up with GI physician at this time (Huang Bennett) 27 -year-old male presents emergency department chief complaint of abdominal pain, nausea, diarrhea. He states that this has been going on for around one week. He was evaluated at [facility] one week ago and a computed tomography scan was performed at that time. He states that he was diagnosed with Crohn's disease. He reports that he was started on prednisone and another medication that he is unsure the name of. He states that he presented to [facility] [place] again today for the same symptoms. He reports blood work was obtained and given IV fluids. Denies fever, chills, blood in stool. Admits to nausea without vomiting. He has not been to see a gastroenterology specialist yet, he has an appointment scheduled for the of this month. (Valeria Licea) 27 male to the emergency department for evaluation of abdominal pain for about a week. Patient has multiple different testing with history of Crohn's disease coming in for severe abdominal pain here in the emergency room. ( Dio Epperson) - Related Data Home Medications Medication Instructions Recorded Confirmed No Known Home Medications 08/05/20 08/06/20 Allergies Allergy/AdvReac Type Severity Reaction Status Date / Time No Known Allergies Allergy Verified 07/25/23 21:05 Review of Systems ROS Other: All systems not noted in ROS Statement are negative. <Huang Bennett - Last Filed: 07/25/23 21:08> ROS Other: All systems not noted in ROS Statement are negative. <Valeria Licea - Last Filed: 07/25/23 23:42> ROS Other: All systems not noted in ROS Statement are negative. <Dio Epperson - Last Filed: 07/31/23 13:12> ROS Statement: Those systems with pertinent positive or pertinent negative responses have been documented in the HPI. Past Medical History Past Medical History: GERD/Reflux, Hearing Disorder / Deafness, Memory Impairment Additional Past Medical History / Comment(s): Hard of hearing left ear. 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 Hx chronic constipation as a c hild. Currently alternating between diarrhea and constipation, nausea, poor appetite, abd pain daily. Hx kidney stones. Recent issues with frequent, difficult urination. [facility] may have been exposed to Legionella Bacteria in the water system at work. [facility] coughed up blood 2-3 weeks ago, was checked out and nothing came of it. [facility] has another Dr appointment to day to hopefully get tested for the bacteria. History of Any Multi-Drug Resistant Organisms: None Reported Past Surgical History: Appendectomy, Tonsillectomy Additional Past Surgical History / Comment(s): Colonoscopy. Past Anesthesia/Blood Transfusion Reactions: Motion Sickness Past Psychological History: Anxiety, Depression Smoking Status: Vaper Past Alcohol Use History: Occasional Past Drug Use History: Marijuana, Prescription Drug Abuse - Past Family History Father Family Medical History: No Reported History <Huang Bennett - Last Filed: 07/25/23 21:08> General Exam Limitations: no limitations <Huang Bennett - Last Filed: 07/25/23 21:08> General appearance: alert, in distress (d.t pain ) Head exam: Present: atraumatic, normocephalic, normal inspection Eye exam: Present: normal appearance, PERRL, EOMI. Absent: scleral icterus, conjunctival injection, periorbital swelling ENT exam: Present: normal exam, normal oropharynx, mucous membranes dry Neck exam: Present: normal inspection. Absent: tenderness, meningismus, lymphadenopathy Respiratory exam: Present: normal lung sounds bilaterally. Absent: respiratory distress, wheezes, rales, rhonchi, stridor Cardiovascular Exam: Present: regular rate, normal rhythm, normal heart sounds. Absent: systolic murmur, diastolic murmur, rubs, gallop, clicks GI/Abdominal exam: Present: soft, tenderness (diffuse), normal bowel sounds. Absent: distended, guarding, rebound, rigid Extremities exam: Present: normal inspection, full ROM, normal capillary refill. Absent: tenderness, pedal edema, joint swelling, calf tenderness Back exam: Present: normal inspection Neurological exam: Present: alert, oriented X3 Psychiatric exam: Present: normal affect, normal mood Skin exam: Present: warm, dry, intact, normal color. Absent: rash <Valeria Licea - Last Filed: 07/25/23 23:42> General appearance: alert, in no apparent distress Head exam: Present: atraumatic, normocephalic, normal inspection Eye exam: Present: normal appearance, PERRL, EOMI. Absent: scleral icterus, conjunctival injection, periorbital swelling ENT exam: Present: normal exam, mucous membranes moist Neck exam: Present: normal inspection. Absent: tenderness, meningismus, lymphadenopathy Respiratory exam: Present: normal lung sounds bilaterally. Absent: respiratory distress, wheezes, rales, rhonchi, stridor Cardiovascular Exam: Present: regular rate, normal rhythm, normal heart sounds. Absent: systolic murmur, diastolic murmur, rubs, gallop, clicks GI/Abdominal exam: Present: soft, normal bowel sounds. Absent: distended, tenderness, guarding, rebound, rigid Extremities exam: Present: normal inspection, full ROM, normal capillary refill. Absent: tenderness, pedal edema, joint swelling, calf tenderness Back exam: Present: normal inspection Neurological exam: Present: alert, oriented X3, CN II-XII intact Psychiatric exam: Present: normal affect, normal mood Skin exam: Present: warm, dry, intact, normal color. Absent: rash <Dio Epperson - Last Filed: 07/31/23 13:12> - General Exam Comments Initial Comments: Visual Physical Exam Vital signs reviewed General: Well-appearing, nontoxic, no acute distress. Head: Normocephalic, atraumatic Eyes: PERRLA, EOMI ENT: Airway patent Chest: Nonlabored breathing Skin: No visual rash, normal skin tone Neuro: Alert and oriented 3 Musculoskeletal: No gross abnormalities (Huang Bennett) Course <Dio Epperson - Last Filed: 07/31/23 13:12> Vital Signs 07/25/23 07/26/23 07/26/23 21:01 02:00 03:20 Temperature 98.8 F 98.7 F Pulse Rate 108 H 64 72 Respiratory 22 18 18 Rate Blood Pressure 125/74 108/60 121/73 O2 Sat by Pulse 99 99 99 Oximetry - Reevaluation(s) Reevaluation #1: Medical record is reviewed (Dio Epperson) Reevaluation #2: Patient symptoms is improved feels good and wants discharged home (Dio Epperson) Reevaluation #3: for results and questions answered (Dio Epperson) Reevaluation #4: Was pt. sent in by a medical professional or institution (, PA, CLOTH EXAMINER, urgent care, hospital, or assisted...) When possible be specific @ -no Did you speak to anyone other than the patient for history (EMS, parent, family, police, friend...)? What history was obtained from this source @ -no Did you review nursing and triage notes (agree or disagree)? Why? @ -agree Are old charts reviewed (outside hosp., previous admission, EMS record, old EKG, old radiological studies, urgent care reports/EKG's, assisted records)? Report findings @ -yes Differential Diagnosis (chest pain, altered mental status, abdominal pain women, abdominal pain men, vaginal bleeding, weakness, fever, dyspnea, syncope, headache, dizziness, GI bleed, back pain, seizure, CVA, palpatations, mental health, musculoskeletal)? @ -prior EKG interpreted by me (3pts min.). @ -no X-rays interpreted by me (1pt min.). @ -no CT interpreted by me (1pt min.). @ -yes U/S interpreted by me (1pt. min.). @ -no What testing was considered but not performed or refused? (CT, X-rays, U/S, labs)? Why? @ -none What meds were considered but not given or refused? Why? @ -none Did you discuss the management of the patient with other professionals (professionals i.e. , PA, CLOTH EXAMINER, lab, RT, psych nurse, rn social work, lineworker, teacher, aviation ordnance officer, case management rn)? Give summary @ -no Was smoking cessation discussed for >3mins.? @ -no Was critical care preformed (if so, how long)? @ -no Were there social determinants of health that impacted care today? How? (Homelessness, low income, unemployed, alcoholism, drug addiction, transportation, low edu. Level, literacy, decrease access to med. care, penitentiary, rehab)? @ -none Was there de-escalation of care discussed even if they declined (Discuss DNR or withdrawal of care, Hospice)? DNR status @ -no What co-morbidities impacted this encounter? (DM, HTN, Smoking, COPD, CAD, Cancer, CVA, ARF, Chemo, Hep., AIDS, mental health diagnosis, sleep apnea, morbid obesity)? @ -none Was patient admitted / discharged? Hospital course, mention meds given and route, prescriptions, significant lab abnormalities, going to OR and other pertinent info. @ - 27 male to the emergency department for evaluation today. Patient presents with acute on chronic abdominal pain related to Crohn's disease. Patient has normal testing here in the ER with lab data use at patient's normal. Patient feels well and was discharged home Discharge Undiagnosed new problem with uncertain prognosis? @ -no Drug Therapy requiring intensive monitoring for toxicity (Heparin, Nitro, Insulin, Cardizem)? @ -no Were any procedures done? @ -no Diagnosis/symptom? @ - Acute, or Chronic, or Acute on Chronic? @ -Acute Uncomplicated (without systemic symptoms) or Complicated (systemic symptoms)? @ -Complicated Side effects of treatment? @ -no Exacerbation, Progression, or Severe Exacerbation? @ -exacerbation Poses a threat to life or bodily function? How? (Chest pain, [place], [place], pneumonia, PE, COPD, DKA, ARF, appy, cholecystitis, CVA, Diverticulitis, Homicidal, Suicidal, threat to staff... and all critical care pts) @ -yes (Dio Epperson) Reevaluation #5: Differential Abdominal Pain Men: Appendicitis, cholecystitis, diverticulosis, ischemic bowel, pancreatitis, hepatitis, UTI, gastroenteritis, AAA, incarcerated hernia, bowel obstruction, constipation, inflammatory bowel, hepatitis, peptic ulcer disease, splenic infarction, perforated viscus, testicular torsion, this is not meant to be an all-inclusive list (Dio Epperson) Medical Decision Making <Huang Bennett - Last Filed: 07/25/23 21:08> - Lab Data Result diagrams: 07/25/23 21:37 07/25/23 21:37 <Valeria Licea - Last Filed: 07/25/23 23:42> - Lab Data Result diagrams: 07/25/23 21:37 07/25/23 21:37 - Radiology Data Radiology results: report reviewed (CT head and pelvis is negative for acute d isease), image reviewed <Dio Epperson - Last Filed: 07/31/23 13:12> - Medical Decision Making I completed the quick note portion of this chart Signed Huang Bennett PA-C (Huang Bennett) Was pt. sent in by a medical professional or institution (Dr. PA, CLOTH EXAMINER, urgent care, hospital, or assisted...) When possible be specific @ -[No] Did you speak to anyone other than the patient for history (EMS, parent, family, police, friend...)? What history was obtained from this source @ no Did you review nursing and triage notes (agree or disagree)? Why? @ [I reviewed and agree with nursing and triage note] Were old charts reviewed (outside hosp., previous admission, EMS record, old EKG, old radiological studies, urgent care reports/EKG's, assisted records)? Report findings @ [No old charts were reviewe] Differential Diagnosis (chest pain, altered mental status, abdominal pain women, abdominal pain men, vaginal bleeding, weakness, fever, dyspnea, syncope, headache, dizziness, GI bleed, back pain, seizure, CVA, palpatations, mental health, musculoskeletal)? @ [Differential Abdominal Pain Men: Appendicitis, cholecystitis, diverticulosis, ischemic bowel, pancreatitis, hepatitis, UTI, gastroenteritis, AAA, incarcerated hernia, bowel obstruction, constipation, inflammatory bowel, hepatitis, peptic ulcer disease, splenic infar ction, perforated viscus, testicular torsion, this is not meant to be an all- inclusive lis] EKG interpreted by me (3pts min.). @ none X-rays interpreted by me (1pt min.). @ [None don] CT interpreted by me (1pt min.). @ [CT abdomen and pelvis pending at time of signout] U/S interpreted by me (1pt. min.). @ [None done] What testing was considered but not performed or refused? (CT, X-rays, U/S, labs)? Why? @ none What meds were considered but not given or refused? Why? @ none Did you discuss the management of the patient with other professionals (prof santo i.e. , PA, CLOTH EXAMINER, lab, RT, psych nurse, rn social work, lineworker, teacher, aviation ordnance officer, case management rn)? Give summary @ no Was smoking cessation discussed for >3mins.? @ no Was critical care preformed (if so, how long)? @ no Were there social determinants of health that impacted care today? How? (Homelessness, low income, unemployed, alcoholism, drug addiction, transportation, low edu. Level, literacy, decrease access to med. care, penitentiary, rehab)? @ no Was there de-escalation of care discussed even if they declined (Discuss DNR or withdrawal of care, Hospice)? DNR status @ no What co-morbidities impacted this encounter? (DM, HTN, Smoking, COPD, CAD, Cancer, CVA, ARF, Chemo, Hep., AIDS, mental health diagnosis, sleep apnea, morbid obesity)? @ none Was patient admitted / discharged? Hospital course, mention meds given and route, prescriptions, significant lab abnormalities, going to OR and other pertinent info. @ [Patient presented to emergency department chief complaint of abdominal pain, diarrhea 1 week. He was evaluated at [facility] today and was discharged home. He states that upon discharge home this pain returned. He denies any blood in the stool at this time. CBC shows WBC 10.6, hemoglobin 15.2, hematocrit 45.1; CMP shows sodium 135, potassium 4.4, CO2 25, creatinine 0.67, lactic acid 1.0; CMP 3.1. CT abdomen and pelvis pending at time of signout to Dr. Epperson] Undiagnosed new problem with uncertain prognosis? @ [No] Drug Therapy requiring intensive monitoring for toxicity (Heparin, Nitro, Insulin, Cardizem)? @ no Were any procedures done? @ no Diagnosis/symptom? @ [abdominal pain] Acute, or Chronic, or Acute on Chronic? @ [defaul] Uncomplicated (without systemic symptoms) or Complicated (systemic symptoms)? @ [defaul] Side effects of treatment? @ [N] Exacerbation, Progression, or Severe Exacerbation? @ [N] Poses a threat to life or bodily function? How? (Chest pain, [place], [place], pneumonia, PE, COPD, DKA, ARF, appy, cholecystitis, CVA, Diverticulitis, Homicidal, Suicidal, threat to staff... and all critical care pts) @ [N] (Valeria Licea) 27 male to the emergency department for evaluation today. Patient presents with acute on chronic abdominal pain related to Crohn's disease. Patient has normal testing here in the ER with lab data use at patient's normal. Patient feels well and was discharged home (Dio Epperson) - Lab Data Lab Results 07/25/23 07/25/23 07/25/23 Range/Units 21:37 21:37 21:37 WBC 10.6 (3.8-10.6) k/uL RBC 5.07 (4.30-5.90) m/uL Hgb 15.2 (13.0-17.5) gm/dL Hct 45.1 (39.0-53.0) % MCV 88.9 (80.0-100.0) fL MCH 29.9 (25.0-35.0) pg MCHC 33.7 (31.0-37.0) g/dL RDW 12.1 (11.5-15.5) % Plt Count 198 (150-450) k/uL MPV 7.1 Neutrophils % 89 % Lymphocytes % 6 % Monocytes % 3 % Eosinophils % 1 % Basophils % 0 % Neutrophils # 9.5 H (1.3-7.7) k/uL Lymphocytes # 0.6 L (1.0-4.8) k/uL Monocytes # 0.3 (0-1.0) k/uL Eosinophils # 0.2 (0-0.7) k/uL Basophils # 0.0 (0-0.2) k/uL Sodium 135 L (137-145) mmol/L Potassium 4.4 (3.5-5.1) mmol/L Chloride 100 (98-107) mmol/L Carbon Dioxide 25 (22-30) mmol/L Anion Gap 10 mmol/L BUN 6 L (9-20) mg/dL Creatinine 0.67 (0.66-1.25) mg/dL Est GFR (CKD-EPI)AfAm >90 (>60 ml/min/1.73 sqM) Est GFR (CKD-EPI)NonAf >90 (>60 ml/min/1.73 sqM) Glucose 104 H (74-99) mg/dL Plasma Lactic Acid Spencer 1.0 (0.7-2.0) mmol/L Calcium 9.2 (8.4-10.2) mg/dL Total Bilirubin 0.6 (0.2-1.3) mg/dL AST 30 (17-59) U/L ALT 17 (4-49) U/L Alkaline Phosphatase 63 (38-126) U/L C-Reactive Protein (<1.0) mg/dL Total Protein 7.1 (6.3-8.2) g/dL Albumin 4.5 (3.5-5.0) g/dL Lipase 260 (23-300) U/L 07/25/23 Range/Units 21:37 WBC (3.8-10.6) k/uL RBC (4.30-5.90) m/uL Hgb (13.0-17.5) gm/dL Hct (39.0-53.0) % MCV (80.0-100.0) fL MCH (25.0-35.0) pg MCHC (31.0-37.0) g/dL RDW (11.5-15.5) % Plt Count (150-450) k/uL MPV Neutrophils % % Lymphocytes % % Monocytes % % Eosinophils % % Basophils % % Neutrophils # (1.3-7.7) k/uL Lymphocytes # (1.0-4.8) k/uL Monocytes # (0-1.0) k/uL Eosinophils # (0-0.7) k/uL Basophils # (0-0.2) k/uL Sodium (137-145) mmol/L Potassium (3.5-5.1) mmol/L Chloride (98-107) mmol/L Carbon Dioxide (22-30) mmol/L Anion Gap mmol/L BUN (9-20) mg/dL Creatinine (0.66-1.25) mg/dL Est GFR (CKD-EPI)AfAm (>60 ml/min/1.73 sqM) Est GFR (CKD-EPI)NonAf (>60 ml/min/1.73 sqM) Glucose (74-99) mg/dL Plasma Lactic Acid Spencer (0.7-2.0) mmol/L Calcium (8.4-10.2) mg/dL Total Bilirubin (0.2-1.3) mg/dL AST (17-59) U/L ALT (4-49) U/L Alkaline Phosphatase (38-126) U/L C-Reactive Protein 3.1 H (<1.0) mg/dL Total Protein (6.3-8.2) g/dL Albumin (3.5-5.0) g/dL Lipase (23-300) U/L Disposition <Huang Bennett - Last Filed: 07/25/23 21:08> <Valeria Licea - Last Filed: 07/25/23 23:42> Is patient prescribed a controlled substance at d/c from ED?: No Time of Disposition: 03:00 <Dio Epperson - Last Filed: 07/31/23 13:12> Clinical Impression: Abdominal pain, Crohn's disease, Chronic pain Disposition: HOME SELF-CARE Condition: Undetermined Instructions (If sedation given, give patient instructions): Abdominal Pain (ED) Referrals: Zandra Carmona NPC [Primary Care Provider] - 1-2 days
[2023-07-25 21:52] LABS: Basophils % (A) 0 %; Eosinophils # (A) 0.2 k/uL (0-0.7); Eosinophils % (A) 1 %; HCT 45.1 % (39.0-53.0); HGB 15.2 gm/dL (13.0-17.5); Lymphocytes # (A) 0.6 k/uL (1.0-4.8); Lymphocytes % (A) 6 %; MCH 29.9 pg (25.0-35.0); MCHC 33.7 g/dL (31.0-37.0); MCV 88.9 fL (80.0-100.0); Mean Platelet Volume 7.1; Monocytes # (A) 0.3 k/uL (0-1.0); Monocytes % (A) 3 %; Neutrophils # (A) 9.5 k/uL (1.3-7.7); Neutrophils % (A) 89 %; Platelet Count 198 k/uL (150-450); RBC 5.07 m/uL (4.30-5.90); RDW 12.1 % (11.5-15.5); WBC 10.6 k/uL (3.8-10.6)
[2023-07-25 22:04] LABS: ALT 17 U/L (4-49); AST 30 U/L (17-59); African American GFR (CKD) >90 (>60 ml/min/1.73 sqM); Albumin 4.5 g/dL (3.5-5.0); Alkaline Phosphatase 63 U/L (38-126); Anion Gap 10 mmol/L; Blood Urea Nitrogen 6 mg/dL (9-20); Calcium 9.2 mg/dL (8.4-10.2); Carbon Dioxide 25 mmol/L (22-30); Chloride 100 mmol/L (98-107); Glucose 104 mg/dL (74-99); Lipase 260 U/L (23-300); Non-African American GFR(CKD) >90 (>60 ml/min/1.73 sqM); Potassium 4.4 mmol/L (3.5-5.1); Sodium 135 mmol/L (137-145); Total Bilirubin 0.6 mg/dL (0.2-1.3); Total Protein 7.1 g/dL (6.3-8.2)
[2023-07-25] MEDS ORDERED: KETOROLAC 15 MG/ML 1 ML VIAL IVP STA (22:52)
[2023-07-25] MEDS ORDERED: PANTOPRAZOLE 40 MG/10 ML VIAL IVP STA (22:52)
[2023-07-25] MEDS ORDERED: SODIUM CHLORIDE 0.9% 1,000 ML IV STA ×2 (22:52)
[2023-07-25] MEDS ORDERED: PROCHLORPERAZINE INJ 10 MG/2 ML VIAL IVP STA (22:52)
[2023-07-26 03:04] VITALS: RESP 18
[2023-07-26 03:47] VITALS: BP 121/73; PULSE 72; TEMP 98.7
--- NOTE | 2023-07-26 05:27 | CT ---
EXAM: CT Abdomen and Pelvis With Intravenous Contrast CLINICAL HISTORY: ITS.REASON CT Reason: pain TECHNIQUE: Axial computed tomography images of the abdomen and pelvis with intravenous contrast. CTDI is 12.1 mGy and DLP is 585.5 mGy-cm. This CT exam was performed using one or more of the following dose reduction techniques: automated exposure control, adjustment of the mA and/or kV according to patient size, and/or use of iterative reconstruction technique. COMPARISON: No relevant prior studies available. FINDINGS: Lung bases: Unremarkable. No mass. No consolidation. ABDOMEN: Liver: Multiple hypodensities in the liver, too small to characterize, though likely relating to cysts. Consider MRI if there is further concern. Gallbladder and bile ducts: Unremarkable. No calcified stones. No ductal dilation. Pancreas: Unremarkable. No mass. No ductal dilation. Spleen: Unremarkable. No splenomegaly. Adrenals: Unremarkable. No mass. Kidneys and ureters: Unremarkable. No solid mass. No hydronephrosis. Stomach and bowel: Multiple fluid-filled nondilated loops of small bowel with additional liquid colonic contents. Findings can be seen with sequela of enterocolitis with diarrheal illness. Consider correlation with laboratory values. PELVIS: Appendix: The appendix is not definitely identified. No gross findings to suggest appendicitis. Bladder: Unremarkable. No mass. Reproductive: Unremarkable as visualized. ABDOMEN and PELVIS: Intraperitoneal space: Unremarkable. No free air. No significant fluid collection. Bones/joints: Degenerative changes at L5-S1. No acute fracture. No dislocation. Soft tissues: Unremarkable. Vasculature: Unremarkable. No abdominal aortic aneurysm. Lymph nodes: Unremarkable. No enlarged lymph nodes. IMPRESSION: 1. Multiple fluid-filled nondilated loops of small bowel with additional liquid colonic contents. Findings can be seen with sequela of enterocolitis with diarrheal illness. Consider correlation with laboratory values. 2. Multiple hypodensities in the liver, too small to characterize, though likely relating to cysts. Consider MRI if there is further concern.
== END 2023-07-26 03:20 | disposition home or self-care (01) ==
LOC: EC 20:49
DX: G89.29 Other chronic pain (principal); K50.90 Crohn's disease, unspecified, without complications; F17.290 Nicotine dependence, other tobacco product, uncomplicated; F12.90 Cannabis use, unspecified, uncomplicated; Z86.59 Personal history of other mental and behavioral disorders
CPT/HCPCS: 36415; 80053; 83605; 83690; 85025; 86140; 74177; 99284; 96374; 96375 ×2; J0780; J1885; C9113; Q9967